=== PATIENT | male | born 1955 | race Caucasian/White ===

== ENCOUNTER → 2018-10-01 | Outpatient (CLI) | payer BC ==
--- NOTE | 2018-10-01 15:55 | PCVCIMAG ---
APPROVED REPORT Study performed: 10/01/2018 14:33:09 EXAM: Comprehensive 2D, Doppler, and color-flow Echocardiogram Patient Location: Echo lab Status: routine BSA: 2.20 HR: 63 bpmBP: 138/88 mmHg Rhythm: NSR Other Information Study Quality: Technically Difficult Indications Murmur 2D Dimensions IVSd: 15.45 (7-11mm)LVOT Diam: 19.52 (18-24mm) LVDd: 35.08 mm PWd: 13.01 (7-11mm)Ascending Ao: 36.33 (22-36mm) LVDs: 19.92 (25-40mm) Left Atrium: 26.94 (27-40mm) Aortic Root: 40.16 mm LV Single Plane 4CH: 65.56 % LV Single Plane 2CH: 61.34 % Biplane EF: 64.1 % Volumes Left Atrial Volume (Systole) Single Plane 4CH: 53.75 mLSingle Plane 2CH: 57.81 mL LA ESV Index: 26.00 mL/m2 Aortic Valve AoV Peak Leandro.: 1.47 m/s AO Peak Gr.: 8.59 mmHg Mitral Valve E/A Ratio: 0.9 MV Decel. Time: 253.49 ms MV E Max Leandro.: 0.68 m/s MV A Leandro.: 0.79 m/s IVRT: 93.43 ms TDI E/Lateral E': 7.56E/Medial E': 9.71 Medial E' Leandro.: 0.07 m/s Lateral E' Leandro.: 0.09 m/s Pulmonary Vein P Vein S: 0.59 m/sP Vein A: 0.44 m/s P Vein D: 0.32 m/sP Vein A Dur.: 96.9 msec P Vein S/D Ratio: 1.84 Tricuspid Valve TR Peak Leandro.: 2.19 m/s TR Peak Gr.: 19.23 mmHg Left Ventricle The left ventricle is normal size. There is normal LV segmental wall motion. Mild concentric left ventricular hypertrophy. Left ventricular systolic function is normal. The left ventricular ejection fraction is within the normal range. LVEF is 60-65%. The left ventricular diastolic function is normal. Right Ventricle The right ventricle is normal size. The right ventricular systolic function is normal. Atria The left atrium size is normal. The right atrium size is normal. Aortic Valve The aortic valve is normal in structure. Mild aortic regurgitation. There is no aortic valvular stenosis. Mitral Valve The mitral valve is normal in structure. There is no mitral valve regurgitation noted. No evidence of mitral valve stenosis. Tricuspid Valve The tricuspid valve is normal in structure. Trace tricuspid regurgitation. Pulmonary artery pressure is 26mmHg. Pulmonic Valve The pulmonary valve is normal in structure. There is no pulmonic valvular regurgitation. Great Vessels The aortic root is normal in size. IVC is normal in size and collapses >50% with inspiration. Pericardium There is no pericardial effusion. <Conclusion> The left ventricle is normal size. Mild concentric left ventricular hypertrophy. Left ventricular systolic function is normal. The right ventricle is normal size. The left atrium size is normal. The right atrium size is normal. Mild aortic regurgitation. The mitral valve is normal in structure. Trace tricuspid regurgitation. Pulmonary artery pressure is 26mmHg.
--- NOTE | 2018-10-01 15:57 | PCVCIMAG ---
APPROVED REPORT Study performed: 10/01/2018 14:52:28 Exam: Stress Echocardiogram Indication: Murmur , Hypertension Patient Location: Echo lab Stress Nurse: Amelia Mishra RN Status: routine Ht: 5 ft 11 in HR: 71 bpm BP: 138/88 mmHg Rhythm: NSR Medical History Exercise History: Physically active Procedure The patient underwent an Exercise Stress Test using the Robert Protocol. Blood pressure, heart rate, and EKG were monitored. An Echocardiogram was performed by telemetry technician in four stages in quad fashion. At peak stress, four selected images were obtained and placed side by side with resting images for comparison. Stress Test Details Stress Test: Exercise stress testing was performed using a Robert protocol. HR Resting HR: 71 bpmMax Heart Rate (APMHR): 159 bpm Max HR Achieved: 164 bpmTarget HR (85% APMHR): 135 bpm % of APMHR: 103 Recovery HR: 90 bpm HR response to stress: Normal HR response to stress BP Resting BP: 138/88 mmHg Max BP: 236/82 mmHg Recovery BP: 140/80 mmHg BP response to stress: Abnormal hypertensive response to stress. ECG Resting ECG: Sinus Rhythm Stress ECG: Sinus Rhythm ST Change: Mildly positive Arrhythmia: VPC's Recovery ECG: Sinus Rhythm Recovery Arrhythmia: VPC's. Clinical Reason for Termination: Maximal effort Exercise duration: 9 min sec Highest Stage Achieved: Stage 3: 3.4 mph at 14% grade. Exercise capacity: 10.10 METs Overall Exercise Capacity for Age: Normal Pre-Stress Echo The resting Echocardiogram showed normal left ventricular contractility with an estimated Ejection Fraction of about 55-60%. Normal wall motion in all segments on baseline images. Post-Stress Echo The stress Echocardiogram showed normal left ventricular contractility with an estimated Ejection Fraction of about 60-65%. Normal augmentation of wall motion in all segments on post stress images. Clinical No clinical evidence for ischemia. Conclusion Clinical Response: Non-ischemic Exercise Capacity: Average Stress ECG Response: Ischemic Stress Echo Images: Non-ischemic The left ventricle is normal in size and wall thickness in both the rest and stress images. Other Information Study Quality: Adequate <Conclusion> The left ventricle is normal in size and wall thickness in both the rest and stress images.
== END | disposition home or self-care (01) ==
LOC: PCVCIMAG 14:22
PROVIDERS: ATTEND Internal Medicine Cardiovascular Disease
DX: I35.1 Nonrheumatic aortic (valve) insufficiency (principal); I11.9 Hypertensive heart disease without heart failure; E78.00 Pure hypercholesterolemia, unspecified; K21.9 Gastro-esophageal reflux disease without esophagitis; Z87.891 Personal history of nicotine dependence
CPT/HCPCS: 93306; 93351